=== PATIENT | female | born 1995 | race Native Hawaiian/Other Pacific Islander ===

== ENCOUNTER 2017-12-13 09:00 | Emergency (ER) | payer OTHER ==
[~2017-12-13] VITALS: Ht 167.6 cm; Wt 71.7 kg
[2017-12-13 09:07] VITALS: BP 130/88
[2017-12-13] MEDS ORDERED: SILVER SULFADIAZINE 1 % TOPICAL CREAM 50GM TOP ONE (09:30)
== END 2017-12-13 09:47 | disposition home or self-care (01) ==
LOC: ER 09:00
DX: T23.151A Burn of first degree of right palm, initial encounter (principal); T31.0 Burns involving less than 10% of body surface; X19.XXXA Contact with other heat and hot substances, initial encounter; Y93.89 Activity, other specified; Y99.8 Other external cause status; Y92.89 Other specified places as the place of occurrence of the external cause
CPT/HCPCS: 16000

== ENCOUNTER 2021-01-04 01:13 | Emergency (ER) | payer OTHER ==
[~2021-01-04] VITALS: Ht 167.6 cm; Wt 90.7 kg
[2021-01-04 03:40] VITALS: BP 113/83
[2021-01-04] MEDS ORDERED: NEOMYCIN-BACITRACIN-POLYM UNITDOSE PKG TOP OINT TOP ONE (04:00)
[2021-01-04] MEDS ORDERED: cefTRIAXone SOD 1,000 MG VL IM ONE (04:30)
[2021-01-04] MEDS ORDERED: LIDOCAINE 1% HCL (LOCAL ANESTH.) INJ 20ML MDV ID ONE (04:45)
== END 2021-01-04 04:57 | disposition home or self-care (01) ==
LOC: ER 01:16
DX: S51.812A Laceration without foreign body of left forearm, initial encounter (principal); W26.8XXA Contact with other sharp object(s), not elsewhere classified, initial encounter; Y93.89 Activity, other specified; Y92.89 Other specified places as the place of occurrence of the external cause; Y99.0 Civilian activity done for income or pay
CPT/HCPCS: 12002; 96372; 99283; J0696; J2001